=== PATIENT | male | born 1955 | race African-American/Black ===

== ENCOUNTER 2022-09-29 00:52 | Inpatient (IN) | payer OTHER ==
[~2022-09-29] VITALS: Ht 172.7 cm; Wt 112.9 kg
[2022-09-29] MEDS ORDERED: METHYLPREDNISOLONE SOD SUCC 125 MG/2 ML VIAL IV STA (00:56)
[2022-09-29] MEDS ORDERED: ALBUTEROL (0.083%) 2.5MG/3ML NEB HHN STA (00:56)
[2022-09-29] MEDS ORDERED: IPRATROPIUM BROMIDE (0.02%) 0.5MG/2.5ML NEB HHN STA (00:56)
[2022-09-29 01:23] LABS: BASOPHILS % 1.1 % (0.0-2.0); EOSINOPHILS % 1.9 % (0.0-5.0); HEMATOCRIT. 44.8 % (42.0-52.0); HEMOGLOBIN. 14.6 g/dL (14.0-18.0); LYMPHOCYTES % 25.6 % (20.0-50.0); MEAN CORPUSCULAR HEMOGLOBIN 28.2 pg (28.0-32.0); MEAN CORPUSCULAR VOLUME 86.9 fL (80.0-94.0); MEAN PLATELET VOLUME 8.2 fl (7.4-10.4); MONOCYTES % 8.1 % (2.0-8.0); NEUTROPHILS % 63.3 % (40.0-76.0); PLATELET 207 x1000/uL (130-400); RED BLOOD CELL COUNT 5.16 mill/uL (4.7-6.1); RED CELL DISTRIBUTION WIDTH 14.3 % (11.6-14.6)
[2022-09-29 02:06] LABS: CHLORIDE 109 mEq/L (98-107)
[2022-09-29] MEDS ORDERED: ASPIRIN 325MG EC TABLET PO NR (05:15)
[2022-09-29] MEDS ORDERED: IPRATROPIUM/ALBUTEROL 0.5-3(2.5)MG/3ML NEB HHN PRN (06:45)
[2022-09-29] MEDS ORDERED: CLONIDINE 0.1MG TABLET PO PRN (06:45)
[2022-09-29] MEDS ORDERED: ACETAMINOPHEN 325MG TABLET PO PRN (06:45)
[2022-09-29] MEDS ORDERED: DOCUSATE SODIUM 100MG CAPSULE PO PRN (06:45)
[2022-09-29] MEDS ORDERED: MAGNESIUM/ALUMINUM HYDROXIDE/SIMETHICONE 30ML UDC PO PRN (06:45)
[2022-09-29] MEDS ORDERED: ONDANSETRON HCL 4MG/2ML INJ IV PRN (06:45)
[2022-09-29] MEDS ORDERED: TRAMADOL 50MG TABLET PO PRN (06:45)
[2022-09-29] MEDS ORDERED: GUAIFENESIN 200MG/10ML SUGAR FREE UDC PO PRN (06:45)
[2022-09-29] MEDS: IPRATROPIUM/ALBUTEROL 0.5-3(2.5)MG/3ML NEB HHN SCH ×3 (07:17→21:06)
[2022-09-29] MEDS ORDERED: LEVOFLOXACIN 500MG PREMIX 100 ML IV SCH (08:00)
[2022-09-29] MEDS: METHYLPREDNISOLONE SOD SUCC 125 MG/2 ML VIAL IV SCH ×4 (08:08→23:55)
[2022-09-29] MEDS ORDERED: AMLODIPINE 10MG TABLET PO SCH (09:00)
[2022-09-29 10:30] VITALS: BP 129/85
[2022-09-29 12:00] VITALS: BP 141/76
[2022-09-29] MEDS ORDERED: NALOXONE HCL 0.4MG/ML VIAL IV PRN (12:00)
[2022-09-29] MEDS ORDERED: LEVOFLOXACIN 250MG PREMIX 50 ML IV NR (13:30)
[2022-09-29] MEDS: BUDESONIDE 0.5MG/2ML NEB HHN SCH ×2 (13:47→21:06)
[2022-09-29] MEDS: TAMSULOSIN HCL 0.4MG SR CAPSULE PO SCH (14:32)
[2022-09-29] MEDS: ENOXAPARIN 30MG/0.3ML SYR SUBCUT SCH ×2 (14:36→20:52)
[2022-09-29 16:00] VITALS: BP 139/63
[2022-09-29] MEDS ORDERED: ONDA4TAB11 PO (17:55)
[2022-09-29] MEDS ORDERED: CLOB15OI3 TP (17:59)
[2022-09-29] MEDS ORDERED: PROP20TA7 PO (18:00)
[2022-09-29] MEDS ORDERED: TERA2CAP4 PO (18:00)
[2022-09-29] MEDS ORDERED: TAMS-11 PO (18:01)
[2022-09-29] MEDS ORDERED: ALLO100T PO (18:02)
[2022-09-29] MEDS ORDERED: TIOT4MIS3 IH (18:03)
[2022-09-29] MEDS ORDERED: CIPR500S3 PO ×2 (18:03→18:29)
[2022-09-29] MEDS ORDERED: ALBU90AE IH (18:04)
[2022-09-29] MEDS ORDERED: CIPR-263 PO (18:31)
[2022-09-29 20:00] VITALS: BP 135/72
[2022-09-29] MEDS ORDERED: *PATIENT'S OWN MEDICATION STORAGE XX SCH (20:15)
[2022-09-30] VITALS: BP 101/51
[2022-09-30] MEDS: IPRATROPIUM/ALBUTEROL 0.5-3(2.5)MG/3ML NEB HHN SCH ×2 (01:20→08:50)
[2022-09-30] MEDS: METHYLPREDNISOLONE SOD SUCC 125 MG/2 ML VIAL IV SCH ×2 (05:54→13:50)
[2022-09-30 07:43] LABS: BASOPHILS % 0.1 % (0.0-2.0); CHLORIDE 105 mEq/L (98-107); HEMATOCRIT. 41.8 % (42.0-52.0); HEMOGLOBIN. 13.7 g/dL (14.0-18.0); LYMPHOCYTES % 10.1 % (20.0-50.0); MEAN CORPUSCULAR HEMOGLOBIN 28.1 pg (28.0-32.0); MEAN CORPUSCULAR VOLUME 85.4 fL (80.0-94.0); MEAN PLATELET VOLUME 8.9 fl (7.4-10.4); MONOCYTES % 4.3 % (2.0-8.0); NEUTROPHILS % 85.5 % (40.0-76.0); PLATELET 222 x1000/uL (130-400); RED BLOOD CELL COUNT 4.89 mill/uL (4.7-6.1); RED CELL DISTRIBUTION WIDTH 14.1 % (11.6-14.6)
[2022-09-30 07:56] LABS: HDL CHOLESTEROL 48 mg/dL (40-59); LDL CHOLESTEROL 89 mg/dL (5-100)
[2022-09-30 08:00] VITALS: BP 132/50
[2022-09-30] MEDS ORDERED: LEVOFLOXACIN 750MG PREMIX 150 ML IV SCH (08:00)
[2022-09-30] MEDS: BUDESONIDE 0.5MG/2ML NEB HHN SCH (08:50)
[2022-09-30] MEDS: TAMSULOSIN HCL 0.4MG SR CAPSULE PO SCH (09:03)
[2022-09-30] MEDS: ENOXAPARIN 30MG/0.3ML SYR SUBCUT SCH (09:03)
[2022-09-30] MEDS ORDERED: LEVOFLOXACIN 500MG PREMIX 100 ML IV SCH (11:00)
[2022-09-30 12:00] VITALS: BP 143/62
[2022-09-30 14:04] VITALS: BP 143/62
[2022-09-30] MEDS ORDERED: METHYLPREDNISOLONE SOD SUCC 125 MG/2 ML VIAL IV SCH (22:45)
== END 2022-09-30 15:10 | disposition home or self-care (01) | DRG 190 ==
LOC: ER 01:10 → 6WST 02:38 → EDBEDREQSVC 08:10 → ENRESERV 09:28
PROVIDERS: ADMIT Hospitalist; ATTEND Hospitalist
PROC: 5A09357 Assistance with Respiratory Ventilation, Less than 24 Consecutive Hours, Continuous Positive Airway Pressure (ICD-10-PCS; principal; 2022-09-29)
PROC: 5A09357 Assistance with Respiratory Ventilation, Less than 24 Consecutive Hours, Continuous Positive Airway Pressure (ICD-10-PCS; 2022-09-30)
DX: J44.1 Chronic obstructive pulmonary disease with (acute) exacerbation (principal); J96.01 Acute respiratory failure with hypoxia; Z20.822 Contact with and (suspected) exposure to COVID-19; J44.9 Chronic obstructive pulmonary disease, unspecified; I10 Essential (primary) hypertension; N40.0 Benign prostatic hyperplasia without lower urinary tract symptoms; G47.33 Obstructive sleep apnea (adult) (pediatric)
CPT/HCPCS: 36415; 71045; 80053; 80061; 83880; 84484; 85025; 87426; 93005; 93970; 99285; J1650; J1956; J2930; J7626